=== PATIENT | female | born 1985 | race Caucasian/White ===

== ENCOUNTER → 2017-01-30 | Outpatient (CLI) | payer OTHER ==
--- NOTE | 2017-01-30 11:20 | DI ---
XR KNEE CMPT 4 OR MORE VWS,01/30/2017 10:06 AM: Clinical History: Acute right knee pain Previous Exam: April 22, 2016 Findings: 4 weightbearing views of the right knee are obtained, and demonstrate anatomic alignment without frac tures. The surrounding soft tissues are unremarkable. Impression: Normal right knee.
== END ==
LOC: ORTHO 10:17
PROVIDERS: ATTEND Orthopaedic Surgery
DX: M25.561 Pain in right knee (principal); M76.51 Patellar tendinitis, right knee; S83.281D Other tear of lateral meniscus, current injury, right knee, subsequent encounter
CPT/HCPCS: 73564